=== PATIENT | male | born 1945 | race Caucasian/White ===

== ENCOUNTER → 2019-03-26 | Outpatient (CLI) | payer MEDICARE | END | disposition home or self-care (01) | LOC: CARD 12:59 | PROVIDERS: ATTEND Internal Medicine Cardiovascular Disease | DX: J44.9 Chronic obstructive pulmonary disease, unspecified (principal) | CPT/HCPCS: 94060; 94726; 94729 ==

== ENCOUNTER → 2019-07-12 | Outpatient (CLI) | payer MEDICARE ==
[~2019-07-12] MED LIST: AMLO10TA8 PO; ASPI81TA45 PO; ATOR40TA78 PO; EZET10TA70 PO; FURO-93 PO; HYDR-3342 PO; METO-99 PO; PERI8TAB2 PO; POTA10TA5 PO; RIVA15TA PO
[2019-07-12 10:25] LABS: ALBUMIN 3.2 g/dL (3.4-5.0); ANION GAP 5 mmol/L (5-15); CALCIUM 8.9 mg/dL (8.5-10.1); CHLORIDE 110 mmol/L (98-107)
[2019-07-12 10:28] LABS: ALANINE AMINOTRANSFERASE 49 U/L (12-78); ALKALINE PHOSPHATASE 121 U/L (45-117); BILIRUBIN,TOTAL 0.7 mg/dL (0.2-1.0); TOTAL PROTEIN 7.9 g/dL (6.4-8.2)
== END | disposition home or self-care (01) ==
LOC: STAR 08:44
PROVIDERS: ATTEND Internal Medicine
DX: Z01.818 Encounter for other preprocedural examination (principal); Z86.010 Personal history of colon polyps; I48.91 Unspecified atrial fibrillation; I45.10 Unspecified right bundle-branch block
CPT/HCPCS: 36415; 80053; 93005

== ENCOUNTER 2019-07-17 09:17 | Day surgery (SDC) | payer MEDICARE ==
[~2019-07-17] VITALS: Ht 182.9 cm; Wt 111.0 kg
[2019-07-17] MEDS ORDERED: LACTATED RINGERS 1,000 ML IV SCH (09:26)
[2019-07-17] MEDS ORDERED: CHLORHEXIDINE 15 ML UDC MM STA (09:27)
[2019-07-17] MEDS ORDERED: PROPOFOL 10 MG/ML, 20ML ONE ×2 (11:08)
[2019-07-17] MEDS ORDERED: MIDAZOLAM 1 MG/ML, 2ML ONE (11:08)
[2019-07-17] MEDS ORDERED: LIDOCAINE-MPF 2% ,5ML ONE (11:08)
[2019-07-17] MEDS ORDERED: FENTANYL PF 100 MCG/2ML IV PRN (12:00)
== END 2019-07-17 16:30 | disposition home or self-care (01) ==
LOC: OUT 09:17
PROVIDERS: ATTEND Internal Medicine
DX: Z12.11 Encounter for screening for malignant neoplasm of colon (principal); Z11.59 Encounter for screening for other viral diseases; D12.4 Benign neoplasm of descending colon; D12.8 Benign neoplasm of rectum; K57.30 Diverticulosis of large intestine without perforation or abscess without bleeding; I11.0 Hypertensive heart disease with heart failure; I50.9 Heart failure, unspecified; J44.9 Chronic obstructive pulmonary disease, unspecified; I48.91 Unspecified atrial fibrillation; E78.5 Hyperlipidemia, unspecified; E66.9 Obesity, unspecified; Z68.33 Body mass index [BMI] 33.0-33.9, adult; Z79.01 Long term (current) use of anticoagulants; Z79.899 Other long term (current) drug therapy; Z87.891 Personal history of nicotine dependence; Z79.82 Long term (current) use of aspirin
CPT/HCPCS: 45385; 88305; J2250; J2704; J7120; U0001

== ENCOUNTER → 2020-08-26 | Outpatient (CLI) | payer MEDICARE ==
[~2020-08-26] MED LIST changes: +AMLO-211 PO; -AMLO10TA8 PO
== END | disposition home or self-care (01) ==
LOC: CVU 07:20
PROVIDERS: ATTEND Internal Medicine Cardiovascular Disease
DX: I08.3 Combined rheumatic disorders of mitral, aortic and tricuspid valves (principal); I10 Essential (primary) hypertension; I48.91 Unspecified atrial fibrillation
CPT/HCPCS: C8929; Q9957

== ENCOUNTER 2020-10-29 10:56 | Outpatient (CLI) | payer MEDICARE | END 2020-10-29 23:59 | disposition home or self-care (01) | LOC: CFH 10:56 | PROVIDERS: ATTEND Registered Nurse | DX: Z12.2 Encounter for screening for malignant neoplasm of respiratory organs (principal); I25.10 Atherosclerotic heart disease of native coronary artery without angina pectoris; J43.2 Centrilobular emphysema; J92.9 Pleural plaque without asbestos; J98.4 Other disorders of lung; Z87.891 Personal history of nicotine dependence | CPT/HCPCS: 71271 ==